=== PATIENT | female | born 1990 | race Caucasian/White ===

== ENCOUNTER 2019-11-22 08:53 | Outpatient (CLI) | payer OTHER ==
--- NOTE | 2019-11-22 11:06 | ULT ---
RIGHT UPPER QUADRANT ULTRASOUND: HISTORY: Right upper quadrant abdominal pain. FINDINGS: The visualized portions of the pancreas, proximal visualized abdominal aorta, visualized portions of the IVC, liver, gallbladder, and right kidney demonstrate a normal sonographic appearance. The right kidney measures 9.9 cm in length. The common duct measures 0.2 cm in diameter. Property Claims [employer]er no rafael a negative Sonographic Lund's sign. IMPRESSION: 1. No gallbladder calculi are visualized, and the common duct is normal in caliber. 2. No acute findings are seen. POS: [facility]
== END 2019-11-22 08:54 | disposition home or self-care (01) ==
LOC: SCSULT 08:53
PROVIDERS: ATTEND Family Medicine
DX: R10.11 Right upper quadrant pain (principal)
CPT/HCPCS: 76705

== ENCOUNTER 2019-12-05 09:28 | Outpatient (CLI) | payer OTHER ==
[2019-12-05] MEDS ORDERED: Iopamidol 370 76% 100 ML VIAL ONE (10:42)
--- NOTE | 2019-12-05 11:13 | CT ---
CT ABDOMEN AND PELVIS WITH IV CONTRAST: Date: 12/05/2019 INDICATION: 29-year-old female with left upper quadrant abdominal pain that extends into her back that has been o ngoing for 1 month. Patient has lost 20 lbs in the last 3 weeks. CONTRAST: 70 mL [id number]. COMPARISON: Right upper quadrant ultrasound dated 11/22/2019. FINDINGS: ABDOMEN: Lung bases are clear. Liver, spleen, pancreas, adrenal glands, and kidneys are normal appearing. No free fluid or enlarged lymph nodes are evident. Visualized abdominal aorta and IVC appear within normal limits. PELVIS: There is a fat density mass within the left ovary measuring 2.6 x 2.2 cm consistent with a dermoid. T he visualized uterus and right adnexa appear within normal limits. The bladder is partially decompres sed. There is a mild amount of retained stool within the colon. Small bowel is of normal caliber. The appendix is not definitely seen; however, there are no secondary signs for appendicitis. No free fluid or enlarged lymph nodes are evident. OSSEOUS STRUCTURES: No acute osseous abnormality demonstrated. IMPRESSION: 1. No CT explanation for the patient's left upper quadrant abdominal pain and weight loss. 2. Incidental fat-containing mass lesion in the left adnexa consistent with a dermoid. POS: [facility]
== END 2019-12-05 09:29 | disposition home or self-care (01) ==
LOC: BICCT 09:28
PROVIDERS: ATTEND Family Medicine
DX: R10.9 Unspecified abdominal pain (principal); R63.4 Abnormal weight loss; N83.8 Other noninflammatory disorders of ovary, fallopian tube and broad ligament
CPT/HCPCS: 74177